=== PATIENT | male | born 1950 | race Caucasian/White ===

== ENCOUNTER 2018-01-25 08:22 | Emergency (ER) | payer MEDICARE, BC ==
[2018-01-25] MEDS ORDERED: Sodium Chloride 0.9% 1,000 ML IV SCH (09:00)
[2018-01-25] MEDS ORDERED: Iopamidol 755 Mg/ML 100 ML Bottle IV ONE (09:36)
[2018-01-25] MEDS ORDERED: Sodium Chloride 0.9% 10 ML Syringe FLUSH PRN (09:55)
--- NOTE | 2018-01-25 11:30 | CT ---
INDICATION: Short of breath, sudden onset last night, on Eliquis, question PE. CT CHEST ANGIOGRAPHY WITH CONTRAST: Spiral 1.25 mm axial sections were obtained through the chest with 85 mL Isovue 370 at 3 mL/second with sagittal and coronal reconstructions 01/25/2018. No comparisons were available. Total exam DLP = 967.61 mGy-cm. Calcifications are noted in the arch of the aorta. Only very minimal mediastinal lymphadenopathy is noted, which is nonspecific. No mediastinal masses were seen. Coronary artery calcifications are noted with cardiomegaly. Calcifications are also noted in the abdominal aorta minimally, splenic artery minimally. Renal cortical scarring is suggested with renal fascial thickening. No definite gallstones are demonstrated. Liver, spleen, adrenals, and pancreas were unremarkable. Somewhat heavy markings are noted in the lower lung stauffer, suggesting the possibility of interstitial pulmonary fibrosis, although unusual pneumonia could also be present. Additionally, there is evidence of moderate to moderately severe central lobular emphysema, which is unusual in that it appears to be affecting the lower lung stauffer to a greater extent than the upper lung stauffer. No gross consolidating pneumonia or effusion was seen. There are suggested some subpleural fibrotic changes at both lung bases. No evidence of pulmonary embolus could be identified. IMPRESSION: 1. No evidence of PE. 2. ASHD with cardiomegaly. 3. Central lobular emphysema, moderate to moderately severe. 4. Interstitial changes in the lower lung stauffer, which may be on the basis of pulmonary fibrosis, although unusual pneumonia could also be present. 5. Bridging hyperostotic changes in the mid to lower thoracic spine. 6. ASHD with cardiomegaly. Report was called to Dr. Roa at 1037 hours on 01/25/2018. [facility]
--- NOTE | 2018-01-25 12:54 | ER ---
DATE SEEN: 01/25/2018 TIME SEEN: The patient was seen at 0845 hours. /[id number] SHIRA/SANTIAGO
--- NOTE | 2018-01-28 15:28 | ER ---
DATE SEEN: 01/25/2018 HISTORY OF PRESENT ILLNESS: This 67-year-old gentleman has documented atrial fibrillation, cardiomegaly, and was seen by patrol police lieutenant, Dr. Treviño, at [place] yesterday and planned to have an echo, heart stress test plus a PET Lexiscan study in the near future, comes in because he had an onset of increasing shortness of breath that is 2 to 3 times more than usual. He has had shortness of breath for the past month. No association of fever or cough. It is noted he was hungry for air in the middle of the tonight. He is taking Eliquis for his atrial fibrillation with associated dyslipidemia. The patient had a previous heart attack before, non-STEMI and had 1 stent, myocardial infarction in 2012. REVIEW OF SYSTEMS: HEENT: Denies headache, lightheadedness, sore throat, or sinus congestion or rhinorrhea. CARDIORESPIRATORY: He has occasional chest discomfort, but does not attribute that to his shortness of breath. Denies near syncope, but he has mild dizziness today. His hydration has been adequate. He has not taken his carvedilol medicine this morning. GI: Denies nausea, vomiting, diarrhea, blood in the stool, hematochezia, constipation, hepatitis, or GERD. NEURO: No seizures or dysesthesia. MUSCULOSKELETAL: Negative except for mild arthritis. Takes Naprosyn daily. PSYCH: Negative. MEDICATIONS: 1. Flomax 0.4 mg daily. 2. Simvastatin 20 mg at bedtime. 3. Nitroglycerin p.r.n. 4. Naproxen 220 mg daily. 5. Carvedilol 3.125 mg b.i.d. 6. Aspirin daily 162 mg. 7. Apixaban 5 mg b.i.d. The patient was seen by his doctor yesterday, reviewed his sheet. He had an elevated pressure at 160s/90s initially, but that came down to 140/70s, which is documented in the chart. PHYSICAL EXAMINATION: VITAL SIGNS: Blood pressure 176/94, heart rate 55, respirations 18, oxygen saturation 100% on room air, and temperature is 36.4 degrees centigrade. GENERAL: Alert, overweight man accompanied by his , in no acute distress. He is a retired postal service mail processor and pretty relaxed. He states he had smoked cigars in the 80s occasionally. He weighs 230 pounds. HEENT: PERRLA intact. TMs negative. Pharynx without abnormality. NECK: No bruits. No masses. No thyromegaly. LUNGS: Clear without rales, rhonchi, or wheezes. HEART: S1 normal, S2 normal. No irregular rate and rhythm. ABDOMEN: Nontender. No guarding. No abdominal discomfort. EXTREMITIES: No pedal edema in the lower extremities. Dorsalis pedis intact. Deep tendon reflexes in upper and lower extremities symmetrical 1+, normoactive. Cranial nerves 2 through 12 intact. Slight decrease in hearing. No pronator drift or dysmetria. LABORATORY STUDIES: Chest x-ray, cardiomegaly, interstitial changes of the lower lung. Centrilobular COPD. D-dimer is normal at 0.4, PTT is 27.3. He has mild decreased GFR with a creatinine 1.4, BUN 23, GFR is 50, total bilirubin 1.5. Troponin less than 0.017. Alkaline phosphatase trace elevated at 34. Urine is negative. Several serial blood pressures were elevated, 1st when he arrived 184/81, 180/116, 166/94. ASSESSMENT: 1. Shortness of breath, etiology probably related to hypertension. 2. No evidence for vascular events, myocardial infarction, PE, or pneumonia. 3. He has chronic obstructive lung disease, centrilobular emphysema, interstitial lower lung disease, and calcification of coronary arteries with moderate cardiomegaly. 4. Atrial fibrillation, treated with Eliquis. 5. Symptoms of shortness of breath and dizziness may be related to the patient's new increased blood pressure. The patient's status was discussed with Dr. Treviño, the patrol police lieutenant at [place], who suggested doubling the carvedilol from 3.25 mg b.i.d. to 6.5 mg b.i.d. Follow up with doctor next week or earlier if worse. If he has persistent symptoms, he should be calling Dr. Treviño to make arrangements for further admission, either through his doctor or through Dr. Treviño at [place] tomorrow. If he is not improved, then further studies would be begun and perhaps the push ahead for the stress echo and PET Lexiscan. EKG showed atrial fibrillation with bradycardia, mild ST-elevation inferior leads, which is not significant. OTHER DIAGNOSES: Interstitial lung changes, centrilobular, chronic obstructive pulmonary disease, and calcification of coronary artery disease and cardiomegaly. PLAN: Follow up with Dr. Treviño earlier, otherwise see his doctor next week and then make arrangements to see Dr. Treviño in followup. /[id number] SHIRA/SANTIAGO
== END 2018-01-25 11:58 | disposition home or self-care (01) ==
LOC: FB.ED 08:22
DX: J43.2 Centrilobular emphysema (principal); I25.10 Atherosclerotic heart disease of native coronary artery without angina pectoris; I48.91 Unspecified atrial fibrillation; Z79.899 Other long term (current) drug therapy; Z79.82 Long term (current) use of aspirin
CPT/HCPCS: 36415; 71275; 80053; 81001; 84484; 85025; 85379; 85730; 93005; 96360; 96361; 99285; J7030; J7050; Q9967; 93010; 99284

== ENCOUNTER 2018-02-04 15:25 | Emergency (ER) | payer MEDICARE, BC ==
[2018-02-04] MEDS ORDERED: LORazepam 0.5 MG Tab PO ONE (16:46)
--- NOTE | 2018-02-04 18:28 | EDM.PDOC ---
ED HPI GENERAL MEDICAL PROBLEM - General Chief Complaint: Respiratory Problem Stated Complaint: SOB Time Seen by Provider: 02/04/18 15:45 Source of Information: Reports: Patient, Family History Limitations: Reports: No Limitations - History of Present Illness INITIAL COMMENTS - FREE TEXT/NARRATIVE: c/o sob x 1m dx afib 1m ago, begun Eliquis, also sob x 1m, has seen real estate developer who inc'd his carbedilol, echo done with results pending, real estate developer ordered a PET scan for 4d from now CT from 8d ago showed moderate to moderately severe COPD with cardiomegaly, Dr Yeboah has walked pt in office and has raised doubt re dx of COPD, no been on HFAs in the past, not had PFTs done PO 100% on RA with RR 16 here, thinks he is anxious had a good day in [facility] yesterday, mild sob all day today, also sob at night , inc'd sob with exertion - Related Data Allergies Allergy/AdvReac Type Severity Reaction Status Date / Time Penicillins Allergy Rash Verified 01/25/18 09:19 Home Meds: Home Meds Aspirin [Cowley Aspirin] 162 mg PO DAILY 09/04/13 [History] Carvedilol [Coreg] 3.125 mg PO BID 09/04/13 [History] Nitroglycerin [Nitrostat] 0.4 mg SL ASDIRECTED PRN 09/04/13 [History] Simvastatin [Zocor] 20 mg PO BEDTIME 09/04/13 [History] Tamsulosin [Flomax] 0.4 mg PO DAILY 09/04/13 [History] Apixaban [Eliquis] 5 mg PO BID 01/25/18 [History] Naproxen Sodium [Aleve] 220 mg PO DAILY 01/25/18 [History] LORazepam 0.5 mg PO Q12H PRN #6 tablet 02/04/18 [Rx] Past Medical History Cardiovascular History: Reports: Afib, Arrhythmia, Hypertension, AR Genitourinary History: Reports: BPH - Past Surgical History Cardiovascular Surgical History: Reports: Coronary Artery Stent Social & Family History - Family History Family Medical History: Noncontributory - Caffeine Use Caffeine Use: Reports: Coffee ED ROS GENERAL - Review of Systems Review Of Systems: See Below Constitutional: Reports: No Symptoms HEENT: Reports: No Symptoms Respiratory: Reports: Shortness of Breath. Denies: Cough Cardiovascular: Reports: No Symptoms Endocrine: Reports: No Symptoms GI/Abdominal: Reports: No Symptoms : Reports: No Symptoms Musculoskeletal: Reports: No Symptoms Skin: Reports: No Symptoms Neurological: Reports: No Symptoms Psychiatric: Reports: No Symptoms Hematologic/Lymphatic: Reports: No Symptoms Immunologic: Reports: No Symptoms ED EXAM, GENERAL - Physical Exam Exam: See Below Exam Limited By: No Limitations General Appearance: Alert, WD/WN, No Apparent Distress Ears: Normal External Exam, Hearing Grossly Normal Nose: Normal Inspection, Normal Mucosa, No Blood Throat/Mouth: Normal Inspection, Normal Lips, Normal Teeth, Normal Gums, Normal Oropharynx, Normal Voice, No Airway Compromise Head: Atraumatic, Normocephalic Neck: Normal Inspection, Supple, Non-Tender, Full Range of Motion Respiratory/Chest: No Respiratory Distress, Lungs Clear, Normal Breath Sounds, No Accessory Muscle Use, Chest Non-Tender Cardiovascular: No Edema, No Gallop, No JVD, No Rub, Other (irreg irreg, quiet precordium, 2/6 KEN at LSB) GI/Abdominal: Soft, No Distention, No Mass Back Exam: Normal Inspection, Full Range of Motion, NT Extremities: Normal Inspection, Normal Range of Motion, Non-Tender, No Pedal Edema Neurological: Alert, Oriented, CN II-XII Intact, Normal Cognition, No Motor/ Sensory Deficits Psychiatric: Normal Affect, Normal Mood Skin Exam: Warm, Dry, Intact, Normal Color, No Rash Lymphatic: No Adenopathy Course - Orders/Labs/Meds Labs: Laboratory Tests 02/04/18 02/04/18 Range/Units 17:10 17:10 WBC 7.0 (4.5-12.0) X10-3/uL RBC 5.61 (4.30-5.75) x10(6)uL Hgb 17.0 H (11.5-15.5) g/dL Hct 51.6 H (30.0-51.3) % MCV 91.8 (80-96) fL MCH 30.2 (27.7-33.6) pg MCHC 32.9 (32.2-35.4) g/dL RDW 13.1 (11.5-15.5) % Plt Count 219 (125-369) X10(3)uL MPV 8.4 (7.4-10.4) fL Neut % (Auto) 59.9 (46-82) % Lymph % (Auto) 31.1 (13-37) % Sierra % (Auto) 6.5 (4-12) % Eos % (Auto) 1 (1.0-5.0) % Baso % (Auto) 1 (0-2) % Neut # (Auto) 4.1 (1.6-8.3) # Lymph # (Auto) 2.2 (0.6-5.0) # Sierra # (Auto) 0.5 (0.0-1.3) # Eos # (Auto) 0.1 (0.0-0.8) # Baso # (Auto) 0.1 (0.0-0.2) # Troponin I < 0.017 L (<0.017-0.056) ng/mL C-Reactive Protein 0.2 L (0.5-0.9) mg/dL NT-Pro-B Natriuret Pep 829 H (<=125) pg/mL Meds: Medications Discontinued Medications Generic Name Dose Route Start Last Admin Trade Name Freq PRN Reason Stop Dose Admin Lorazepam 0.5 mg 02/04/18 16:46 02/04/18 17:51 Ativan PO 02/04/18 16:47 0.5 mg ONETIME ONE Administration Departure - Departure Time of Disposition: 18:28 Disposition: Home, Self-Care 01 Condition: Good Clinical Impression: Shortness of breath, Atrial fibrillation, Heart failure, Elevated brain natriuretic peptide (BNP) level - Discharge Information Prescriptions: LORazepam 0.5 mg PO Q12H PRN #6 tablet PRN Reason: Anxiety Instructions: Atrial Fibrillation, Heart Failure Referrals: Eduardo Martines MD [Primary Care Provider] - Additional Instructions: Continue current meds. For anxiety, as needed, take lorazepam 0.5 mg 1 tab every 6 hours. Complete your PET scan in [address] See Dr Yeboah in the next week. Return to ED if you feel worse.
== END 2018-02-04 18:38 | disposition home or self-care (01) ==
LOC: FB.ED 15:25
DX: I48.91 Unspecified atrial fibrillation (principal); I50.9 Heart failure, unspecified; R79.89 Other specified abnormal findings of blood chemistry; I10 Essential (primary) hypertension; I25.2 Old myocardial infarction; Z88.0 Allergy status to penicillin; Z79.82 Long term (current) use of aspirin; Z79.899 Other long term (current) drug therapy
CPT/HCPCS: 36415; 83880; 84484; 85025; 86140; 99285; A9270

== ENCOUNTER → 2019-07-10 | Outpatient (CLI) | payer MEDICARE, BC | LOC: FB.CLBR 08:00 | PROVIDERS: ATTEND Nurse Practitioner Family | DX: R04.0 Epistaxis (principal) | CPT/HCPCS: 99201 ==

== ENCOUNTER 2023-04-02 17:34 | Emergency (ER) | payer MEDICARE, BC, OTHER ==
[2023-04-02] MEDS ORDERED: Sodium Chloride 0.9% 10 ML Syringe FLUSH PRN (18:01)
[2023-04-02 18:12] LABS: BASOPHILS PERCENT AUTO 0.3 % (0.3-3.8); BLOOD UREA NITROGEN,BUN 20 mg/dL (7-18); BUN/CREATININE RATIO 16.7 (9-20); CALCIUM 9.1 mg/dL (8.6-10.2); CARBON DIOXIDE,CO2 29 mmol/L (21-32); CHLORIDE,CL 103 mmol/L (100-110); CREATININE 1.2 mg/dL (0.70-1.30); EOSINOPHILS ABSOLUTE AUTO 0.1 x10-3/uL (0.0-0.6); EOSINOPHILS PERCENT AUTO 1.8 % (0.1-6.8); EST CRCL DRUG DOSING (CG) 51.46 mL/min; ESTIMATED GFR 63 mL/min (>60); GLUCOSE RANDOM 84 mg/dL (80-116); HEMOGLOBIN 15.8 g/dL (12.9-17.7); LYMPHOCYTES PERCENT AUTO 27.3 % (15.8-45.3); MEAN CORPUSCULAR HEMOGLOBIN 31.2 pg (27.0-33.3); MEAN CORPUSCULAR HGB CONC 33.7 g/dL (28.7-35.3); MEAN CORPUSCULAR VOLUME 92.6 fL (80.8-98.7); MEAN PLATELET VOLUME 8.3 fL (6.7-11.0); MONOCYTES ABSOLUTE AUTO 0.6 x10-3/uL (0.0-1.2); MONOCYTES PERCENT AUTO 8.3 % (5.5-15.2); NEUTROPHILS ABSOLUTE AUTO 4.6 x10-3/uL (1.7-6.9); NEUTROPHILS PERCENT AUTO 62.3 % (40.3-71.8); PLATELET COUNT,PLT 232 x10(3)uL (117-477); RED BLOOD CELL COUNT 5.08 x10(6)uL (3.90-5.90); RED CELL DISTRIBUTION WIDTH 13.4 % (12.4-15.0); SODIUM,NA 140 mmol/L (135-145); WHITE BLOOD CELL COUNT,WBC 7.4 x10-3/uL (3.2-10.1)
[2023-04-02 18:18] LABS: ALANINE AMINOTRANSFERASE,ALT 28 U/L (12-36); ALBUMIN 3.8 g/dL (3.2-4.6); ALKALINE PHOSPHATASE 72 IU/L (56-112); ASPARTATE AMNIOTRANSFERASE,AST 25 IU/L (5-25); BILIRUBIN TOTAL 0.9 mg/dL (0.1-1.3); MAGNESIUM 1.8 mg/dL (1.8-2.5); PROTEIN TOTAL,TP 7.5 g/dL (6.0-8.0)
[2023-04-02 18:21] LABS: C-REACTIVE PROTEIN 0.11 mg/dL (<0.33); TROPONIN I 22.1 pg/mL (4.0-60.3)
[2023-04-02 18:37] LABS: BILIRUBIN,URINE NEGATIVE (NEGATIVE); GLUCOSE,URINE NORMAL (NORMAL); KETONES,URINE NEGATIVE (NEGATIVE); LEUKOCYTE ESTERASE,URINE NEGATIVE (NEGATIVE); NITRITE,URINE NEGATIVE (NEGATIVE); OCCULT BLOOD,URINE NEGATIVE (NEGATIVE); PROTEIN,URINE NEGATIVE (NEGATIVE); UROBILINOGEN,URINE NORMAL (NEGATIVE)
[2023-04-02 18:45] LABS: APPEARANCE,URINE CLEAR (CLEAR); BACTERIA,URINE RARE (NS); COLOR,URINE YELLOW (YELLOW); RBC,URINE 0-5 (0-5); SQUAMOUS EPITHELIAL CELLS,UR RARE (NS,R,O); WBC,URINE 0-5 (0-5)
[2023-04-02] MEDS ORDERED: Lisinopril 10 MG Tab PO ONE (19:59)
== END 2023-04-02 20:20 | disposition home or self-care (01) ==
LOC: FB.ED 17:34
DX: R42 Dizziness and giddiness (principal); I10 Essential (primary) hypertension; I48.91 Unspecified atrial fibrillation; I25.10 Atherosclerotic heart disease of native coronary artery without angina pectoris; I25.2 Old myocardial infarction; Z79.01 Long term (current) use of anticoagulants; Z79.899 Other long term (current) drug therapy; Z95.5 Presence of coronary angioplasty implant and graft; Z88.0 Allergy status to penicillin
CPT/HCPCS: 36415; 70450; 80053; 81001; 83735; 84484; 85025; 86140; 93005; 99284; A9270; 93010; 99283